=== PATIENT | female | born 2000 | race Caucasian/White ===

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

== ENCOUNTER → 2020-01-17 | Outpatient (CLI) | payer BC | END | disposition home or self-care (01) | LOC: LABWHC1 13:08 | DX: Z20.828 Contact with and (suspected) exposure to other viral communicable diseases (principal) | CPT/HCPCS: U0003; C9803 ==

== ENCOUNTER 2023-05-06 20:25 | Inpatient (IN) | payer BC ==
[2023-05-06] MEDS ORDERED: miSOPROStoL 200 MCG TAB PO PRN (21:07)
[2023-05-06] MEDS ORDERED: OXYTOCIN 10 UNIT/ML 1 ML VIAL IM PRN (21:07)
[2023-05-06] MEDS ORDERED: CARBOPROST TROMETHAMINE 250 MCG/ML 1 ML AMP IM PRN (21:07)
[2023-05-06] MEDS ORDERED: TRANEXAMIC 1,000 MG/100ML-NACL 1,000 MG in EMPTY BAG 1 BAG IV PRN (21:07)
[2023-05-06] MEDS ORDERED: METHYLERGONOVINE 0.2 MG/ML 1 ML AMP IM PRN (21:07)
[2023-05-06] MEDS: LACTATED RINGERS 1,000 ML IV SCH (21:15)
[2023-05-06] MEDS ORDERED: SUCCINYLCHOLINE CHLORIDE 200 MG/10 ML VIAL IV ONE (21:18)
[2023-05-06] MEDS ORDERED: OXYTOCIN 30 UNITS/500 ML NS BAG IV ONE (21:18)
[2023-05-06] MEDS ORDERED: fentaNYL (PF) 50 MCG/ML 2 ML AMP ONE (21:18)
[2023-05-06] MEDS ORDERED: ONDANSETRON 4 MG/2 ML VIAL ONE (21:18)
[2023-05-06] MEDS ORDERED: PROPOFOL 10 MG/ML 20 ML VIAL IV ONE (21:18)
[2023-05-06] MEDS ORDERED: KETOROLAC 15 MG/ML 1 ML VIAL ONE (21:18)
[2023-05-06] MEDS: CITRIC ACID-SODIUM CITRATE 15 ML CUP PO ONE (21:27)
[2023-05-06 21:30] LABS: Basophils % (A) 0 %; Eosinophils # (A) 0.1 k/uL (0-0.7); Eosinophils % (A) 1 %; HCT 35.4 % (34.0-46.0); HGB 12.1 gm/dL (11.4-16.0); Lymphocytes # (A) 1.8 k/uL (1.0-4.8); Lymphocytes % (A) 21 %; MCHC 34.1 g/dL (31.0-37.0); MCV 90.8 fL (80.0-100.0); Mean Platelet Volume 11.4; Monocytes # (A) 0.4 k/uL (0-1.0); Monocytes % (A) 5 %; Neutrophils # (A) 6.1 k/uL (1.3-7.7); Neutrophils % (A) 71 %; Platelet Count 161 k/uL (150-450); RBC 3.89 m/uL (3.80-5.40); RDW 14.1 % (11.5-15.5); WBC 8.5 k/uL (3.8-10.6)
[2023-05-06 21:33] LABS: ALT 18 U/L (4-34); AST 27 U/L (14-36); African American GFR (CKD) >90 (>60 ml/min/1.73 sqM); Blood Urea Nitrogen 12 mg/dL (7-17); Glucose 82 mg/dL (74-99); LDH 227 U/L (120-246); Magnesium 1.7 mg/dL (1.6-2.3); Non-African American GFR(CKD) >90 (>60 ml/min/1.73 sqM); Uric Acid 5.4 mg/dL (3.7-7.4)
[2023-05-06 21:50] LABS: INR 0.8 (<1.2); Partial Thromboplastin Time 23.8 sec (22.0-30.0); Prothrombin Time 9.6 sec (10.0-12.5)
[2023-05-06 22:00] LABS: Appearance,Urine Clear (Clear); Bacteria,Urine Rare /hpf; Bilirubin,Urine Negative (Negative); Blood,Urine Trace (Negative); Color,Urine Light Yellow; Glucose,Urine (UA) Negative (Negative); Hyaline Casts,Urine 1 /lpf (0-2); Ketones,Urine Negative (Negative); Leukocyte Esterase,Urine Negative (Negative); Mucus,Urine Moderate /hpf; Nitrite,Urine Negative (Negative); Protein,Urine 1+ (Negative); RBC,Urine 2 /hpf (0-5); Specific Gravity,Urine 1.029 (1.001-1.035); Squamous Epithelial Cell,Urine 9 /hpf (0-4); Urobilinogen,Urine <2.0 mg/dL (<2.0); WBC,Urine 1 /hpf (0-5)
[2023-05-06 22:01] LABS: Amphetamine Screen,Urine Not Detected (NotDetected); Barbiturate Screen,Urine Not Detected (NotDetected); Benzodiazepines Screen,Urine Not Detected (NotDetected); Cocaine Screen,Urine Not Detected (NotDetected); Methadone Screen, Urine Not Detected (NotDetected); Opiate Screen,Urine Not Detected (NotDetected); Oxycodone Screen, Urine Not Detected (NotDetected); Phencyclidine Screen,Urine Not Detected (NotDetected); Tricyclic Antidepressant,Urine Not Detected (NotDetected); Urn Cannabinoid Scrn Not Detected (NotDetected)
[2023-05-06] MEDS ORDERED: diphenhydrAMINE 50 MG/ML 1 ML VIAL IVP PRN ×2 (22:06)
[2023-05-06] MEDS ORDERED: diphenhydrAMINE 25 MG CAP PO PRN (22:06)
[2023-05-06] MEDS ORDERED: HYDROmorphone 0.5 MG/0.5 ML SYRINGE IVP PRN (22:06)
[2023-05-06] MEDS ORDERED: LANOLIN CREAM 1 GM TUBE TOPICAL PRN (22:06)
[2023-05-06] MEDS ORDERED: NALOXONE 0.4 MG/ML 1 ML VIAL IV PRN (22:06)
[2023-05-06] MEDS ORDERED: ZOLPIDEM 5 MG TAB PO PRN (22:06)
[2023-05-06] MEDS ORDERED: METOCLOPRAMIDE 5 MG/ML 2 ML VIAL IVP PRN (22:06)
[2023-05-06] MEDS ORDERED: ONDANSETRON 4 MG/2 ML VIAL IVP PRN (22:06)
[2023-05-06] MEDS ORDERED: HYDROmorphone 1 MG/ML 1 ML SYRINGE IVP PRN (22:06)
[2023-05-06] MEDS ORDERED: diphenhydrAMINE 50 MG CAP PO PRN (22:06)
[2023-05-06] MEDS ORDERED: SIMETHICONE 80 MG CHEWABLE PO PRN (22:06)
[2023-05-06] MEDS: OXYTOCIN 30 UNITS/500 ML NS 30 UNIT in SALINE 1 500ML.BAG IV SCH (22:14)
--- NOTE | 2023-05-06 22:19 | P.HPOB ---
History of Present Illness H&P Date: 05/06/23 Chief Complaint: Vaginal bleeding This is a 23-year-old female 1 para 0 with an estimated date of confinement of 05/29/2023, estimated gestational age of 36-5/7 weeks, who presented with sudden onset of vaginal bleeding at approximately 8 PM tonight. Patient states she was walking into her mother's house and felt some lower abdominal cramping and then thought her water broke. When she looked down it was all blood. She came immediately to the hospital. She states her belly has felt hard ever since. Patient states she has been getting regular care and [facility] and was scheduled to deliver at [facility]. Records are not available at this time. She did state that she has had no complications during the and no concerns on ultrasounds. Review of Systems Constitutional: Denies chills, Denies fever Eyes: denies blurred vision, denies pain Ears, nose, mouth and throat: Denies headache, Denies sore throat Cardiovascular: Denies chest pain, Denies shortness of breath Respiratory: Denies cough Gastrointestinal: Reports abdominal pain Genitourinary: Reports pelvic pain, Reports Musculoskeletal: Reports low back pain Integumentary: Denies pruritus, Denies rash Neurological: Denies numbness, Denies weakness Psychiatric: Denies anxiety, Denies depression Past Medical History Past Medical History: No Reported History History of Any Multi-Drug Resistant Organisms: None Reported Past Surgical History: No Surgical Hx Reported Past Psychological History: No Psychological Hx Reported Smoking Status: Never smoker Past Alcohol Use History: None Reported Past Drug Use History: None Reported - Past Family History Mother Family Medical History: No Reported History Medications and Allergies Home Medications Medication Instructions Recorded Confirmed Type Vit No.179/Iron/Folic 1 each PO DAILY 05/06/23 05/06/23 History [ Tablet] Allergies Allergy/AdvReac Type Severity Reaction Status Date / Time No Known Allergies Allergy Verified 08/19/13 23:40 Exam Osteopathic Statement: *. No significant issues noted on an osteopathic str uctural exam other than those noted in the History and Physical/Consult. Intake and Output 05/06/23 05/06/23 05/06/23 06:59 14:59 22:59 Other: Weight 101.605 kg Gen.: Well-developed well-nourished female in mild distress due to pain HEENT: Within normal limits Heart: Regular rate and rhythm Lungs: Clear to auscultation bilaterally Abdomen: Firm, moderately tender heart tones: 140s with minimal to moderate variability, nonreactive, no visible decelerations Contractions: Every minute Extremities: Negative Homans Cervix: 1 cm/60%/-2 station with a large amount of bright red blood and clots noted in the vault. Results Result Diagrams: 05/06/23 20:40 Abnormal Lab Results - Last 24 Hours (Table) 05/06/23 05/06/23 05/06/23 Range/Units 20:40 20:40 20:50 PT 9.6 L (10.0-12.5) sec Creatinine 0.51 L (0.52-1.04) mg/dL Urine Protein 1+ H (Negative) Urine Blood Trace H (Negative) Ur Squamous Epith Cells 9 H (0-4) /hpf Urine Bacteria Rare H (None) /hpf Urine Mucus Moderate H (None) /hpf Assessment and Plan (1) 36 weeks gestation of Current Visit: Yes Status: Acute Code(s): Z3A.36 - 36 WEEKS GESTATION OF SNOMED Code(s): 07111479 (2) Placental abruption in third trimester Current Visit: Yes Status: Acute Code(s): O45.93 - PREMATURE SEPARATION OF PLACENTA, UNSP, THIRD TRIMESTER SNOMED Code(s): 555223669 Plan: Admission for stat section due to active placental abruption. Obtained type and screen and CBC along with labs, coags, and urine drug screen due to no care at our institution. Patient and her were counseled regarding the need for emergent section under general anesthesia. All patient questions were answered. She has consented to procedure. I have discussed the risks, benefits, and alternative therapies for the above- mentioned procedure and for both sedation/anesthesia as well as necessary blood products administration, if indicated, as they pertain to this patient. The patient has indicated her understanding and acceptance of the risks and procedures discussed.
--- NOTE | 2023-05-06 22:36 | P.OP ---
Date of Procedure: 05/06/23 Preoperative Diagnosis: 1. Intrauterine at 36-5/7 weeks. 2. Active bleeding consistent with placenta abruption. 3. Rh- Postoperative Diagnosis: Same Procedure(s) Performed: Emergency Primary low transverse section Anesthesia: VEENA Surgeon: Suzette Vanegas Web Machine Tender #1: Agatha Mendoza Estimated Blood Loss (ml): 600 Pathology: other (Placenta) Condition: stable Disposition: floor Indications for Procedure: This is a 23-year-old female 1 para 0 at 36-5/7 weeks who presented with active vaginal bleeding that began approximately half an hour prior to admission. She also complained of constant tightening in her abdomen. Baby was noted to have heart tones in the 140s with minimal to moderate variability and no accelerations noted. In addition she was having contractions every minute. Cervix was noted to be 1 cm and she was having bright red bleeding and clots actively coming from the vagina. Patient was diagnosed with placental abruption and the need for emergent section was stressed to the patien t. After a patient centered huddle, the decision was made to proceed with emergency delivery. I have discussed the risks, benefits, and alternative therapies for the above- mentioned procedure and for both sedation/anesthesia as well as necessary blood products administration, if indicated, as they pertain to this patient. The patient has indicated her understanding and acceptance of the risks and procedures discussed. Operative Findings: A viable female infant was noted in the vertex presentation with scores of 4 at 1 minute and 8 at 5 minutes and nuchal cord 1 with an infant weight of 5 lbs. 12 oz. A large clot was noted next the placenta at approximately 25% of the placenta did appear to be darker in color consistent with placental abruption. Normal uterus tubes and ovaries are noted. Description of Procedure: The patient was taken to the operating room where she is placed in the dorsal supine position with a leftward tilt. She is prepped and draped in the normal sterile fashion. Portillo catheter had already been inserted. Gen. anesthesia was then given. A Pfannenstiel skin incision was made with a scalpel. A second knife was used to carry the incision down to the underlying layer of fascia. Fascia was nicked in the midline and extended laterally bilaterally with Madden scissors. The superior aspect of the fascial incision was grasped with Mae clamps and then elevated off the underlying rectus muscle in the midline with Madden scissors. The inferior aspect of the fascial incision was grasped with Mae clamps, elevated off the underlying rectus muscle with Madden scissors. Next the peritoneum was identified and tented up with 2 hemostats and then entered sharply with a scalpel. It was then extended superiorly and inferiorly with Metzenbaum scissors. Next the bladder blade was inserted and the vesicouterine peritoneum was entered sharply with Metzenbaum scissors and extended laterally bilaterally with 2 fingers. The bladder was then pushed inferiorly and the lower uterine segment was incised in a transverse fashion with the scalpel. The incision was extended laterally with 2 fingers. The amniotic fluid was then artificial ruptured with a hemostat and clear blood- tinged fluid was noted. was then delivered through the incision and nose and mouth were bulb suctioned. Nuchal cord 1 was reduced and then cord was clamped and cut and was taken to warmer for evaluation. Cord blood was obtained. Next the placenta was delivered. A large approximately 10 x 10 cm clot was noted to be next to the placenta and approximately 25% of the placenta did have a darker appearance to it. Next the uterus was exteriorized and cleared of all clots and debris. Uterine incision was then closed with 0 Vicryl suture in a running locked fashion. A second layer of 0 Vicryl suture in a running fashion was used for hemostasis. The vesicouterine peritoneum was sutured with 2-0 Vicryl suture in a running fashion. Next the posterior cul-de-sac was suctioned of all clots and debris. The uterus was returned to the abdomen. The peritoneal incision was then closed with 0 Vicryl suture in a running fashion. The muscle layer was then reapproximated with 0 Vicryl suture in interrupted fashion. The fascial layer was then closed with 0 PDS suture with 2 sutures meeting in the midline and the knots buried on either side and in the midline. Next the subcutaneous tissue was closed with 2-0 Vicryl suture in a running fashion. The skin was closed with maryjane.
[2023-05-06] MEDS: HYDROmorphone PCA 10 MG/50 ML BAG IV PRN (23:03)
[2023-05-06 23:17] LABS: Creatinine,Urine Random 144.2 mg/dL; Protein/Creatinine Ratio,Urine 0.354
[2023-05-07 00:11] LABS: Large Platelets Present
[2023-05-07] MEDS: LACTATED RINGERS 1,000 ML IV SCH (01:00)
[2023-05-07] MEDS: ACETAMINOPHEN TAB 500 MG TAB PO SCH (01:03)
[2023-05-07] MEDS: Rhogam IMMUNE GLOBULIN 1,500 UNIT/1 ML IM ONE (02:22)
[2023-05-07] MEDS: KETOROLAC 15 MG/ML 1 ML VIAL IVP SCH (04:14)
[2023-05-07] MEDS: IBUPROFEN 600 MG TAB PO SCH (04:15)
[2023-05-07 05:08] LABS: Basophils % (A) 0 %; Eosinophils % (A) 0 %; HCT 27.4 % (34.0-46.0); Lymphocytes # (A) 1.6 k/uL (1.0-4.8); Lymphocytes % (A) 14 %; MCH 30.8 pg (25.0-35.0); MCHC 33.6 g/dL (31.0-37.0); MCV 91.7 fL (80.0-100.0); Monocytes # (A) 0.4 k/uL (0-1.0); Monocytes % (A) 3 %; Neutrophils # (A) 9.1 k/uL (1.3-7.7); Neutrophils % (A) 82 %; Platelet Count 130 k/uL (150-450); RBC 2.99 m/uL (3.80-5.40); RDW 14.2 % (11.5-15.5); WBC 11.2 k/uL (3.8-10.6)
[2023-05-07 05:55] LABS: HGB 9.2 gm/dL (11.4-16.0)
[2023-05-07] MEDS: ACETAMINOPHEN IV (For NPO) 1,000 MG in EMPTY BAG 1 BAG IVPB SCH (07:41)
--- NOTE | 2023-05-07 10:59 | P.MSEPDOC ---
Presenting Problems - Arrival Data Date of Arrival on Unit: 05/06/23 Time of Arrival on Unit: 20:25 Mode of Transport: Wheelchair - Complaint OB-Reason for Admission/Chief Complaint: Vaginal Bleeding Comment: pt. states she started bleeding 30min ago, pt. wore a pad in- pad is saturated and bleeding running down pt. leg bright red blood Medical History - Information : 1 Para: 0 Term: 0 : 0 Abortions: Spontaneous or Elective: 0 Number of Living Children: 0 - Gestational Age Gestational Age by MICHELLE (wks/days): 36 Weeks and 5 Days - History Comment: pt. is a DOM has had care with Dr. [place] Review of Systems - Review of Systems Constitutional: No problems Breast: No problems ENT: No problems Cardiovascular: No problems Respiratory: No problems Gastrointestinal: No problems Genitourinary: No problems Musculoskeletal: No problems Neurological: No problems Skin: No problems Vital Signs - Temperature Temperature: 98.2 F Temperature Source: Oral - Pulse Pulse Oximetery Pulse Rate: 99 Pulse Assessment Method: Automatic Cuff - Respirations Respiratory Rate: 16 Oxygen Delivery Method: Room Air O2 Sat by Pulse Oximetry: 98 - Blood Pressure Right Arm Blood Pressure: 112/68 Blood Pressure Mean: 82 Blood Pressure Source: Automatic Cuff Medical Screen Scoring - Cervical Exam Dilation (cm): 1 Effacement (%): 60 - Uterine Contractions Frequency From (mins): 1 Frequency To (mins): 2 Duration From (seconds): 60 Duration To (seconds): 70 Intensity: Strong Resting: Rigid to palpation - Assessment - Baby A Baseline FHR: 140 Heart Rate - NICHD Category: Category II (Indeterminate) NST: Non-reactive Physician Notification - Physician Notified Physician Notified Date: 05/06/23 Physician Notified Time: 20:33 Physician: Dr. cedeño New Order Received: Yes - Notification Comment Comment: start IV, labs, PIH, UDS, will be coming into unit, FOOD AND DRUG INSPECTOR notified, Dr. Mendoza notified, insert dominguez, prep for Maternal Triage Index - Maternal Triage Index Presenting for scheduled procedure w/no complaint: Yes - Stat/Priority 1 Provider Notified: Suzette Cdeeño Provider Notified Time: 20:33 Criteria Met for Priority 1: pt. activity bleeding- bright red blood, ABD rigid to palpation pt. stating -10/27 pain constant to ABD - Scheduled/Requesting Priority 5 Scheduled/Requesting Priority 5: No Disposition - Disposition OB Disposition: Admit I agree with the RN Medical Screening Exam: Yes Case reviewed; plan agreed upon as documented in EMR&OBIX.: Yes Diagnosis: ABNORMAL UTERINE AND VAGINAL BLEEDING, UNSPECIFIED Additional Diagnoses: Probable placental abruption
--- NOTE | 2023-05-07 11:22 | P.PNOBGPC ---
Subjective - Subjective Principal diagnosis: Status post primary section postoperative day #1 Interval history: Patient is doing well. She has been ambulating. She is passing flatus but no bowel movement yet. Her catheter has been out for about 5 hours now and she is still been unable to urinate. If she is unable to urinate in the next hour, she will have a straight cath. Bleeding has been minimal. She denies any headaches or blurry vision. Pain is fairly well controlled at this time. Patient reports: Reports appetite normal, Reports pain well controlled, Reports ambulating normally, Denies voiding normally [place]: doing well, nursing well Objective - Vital Signs Latest vital signs: Vital Signs Temp Pulse Resp BP Pulse Ox 05/07/23 10:59 98.2 F 99 16 112/68 98 05/07/23 04:00 98.2 F 99 16 112/68 98 05/07/23 02:19 98.7 F 16 100 05/07/23 00:15 98.9 F 86 16 127/81 100 05/07/23 00:00 72 16 130/81 100 05/06/23 23:45 72 16 128/81 100 05/06/23 23:30 77 16 130/79 100 05/06/23 23:15 72 16 130/84 100 05/06/23 23:00 73 16 136/83 100 05/06/23 22:45 97.9 F 80 16 129/80 100 05/06/23 22:41 97.7 F 78 16 124/68 100 05/06/23 22:30 95 16 138/73 100 05/06/23 22:15 81 16 119/75 100 05/06/23 22:12 100 05/06/23 22:00 97.0 F L 102 H 15 111/63 97 05/06/23 20:26 97.0 F L 86 16 143/99 98 Intake and Output 05/06/23 05/07/23 05/07/23 22:59 06:59 14:59 Intake Total 1200 240 Output Total 586 315 Balance 614 -315 240 Intake: IV 1200 Oral 240 Output: Urine 50 300 Uretheral (Portillo) 200 Output, Quantitative 536 15 Blood Loss Other: Voiding Method Indwelling Catheter Weight 101.605 kg - Exam Extremities: Present: normal. Absent: tenderness, edema Abdomen: Present: normal appearance, soft. Absent: distention, tenderness Incision: Present: normal, dry, intact. Absent: erythematous Uterus: Present: normal, firm. Absent: tenderness - Labs Labs: Abnormal Lab Results - Last 24 Hours (Table) 05/06/23 05/06/23 05/06/23 Range/Units 20:40 20:40 20:50 WBC (3.8-10.6) k/uL RBC (3.80-5.40) m/uL Hgb (11.4-16.0) gm/dL Hct (34.0-46.0) % Plt Count (150-450) k/uL Neutrophils # (1.3-7.7) k/uL PT 9.6 L (10.0-12.5) sec Creatinine 0.51 L (0.52-1.04) mg/dL Urine Protein 1+ H (Negative) Urine Blood Trace H (Negative) Ur Squamous Epith Cells 9 H (0-4) /hpf Urine Bacteria Rare H (None) /hpf Urine Mucus Moderate H (None) /hpf 05/07/23 Range/Units 04:48 WBC 11.2 H (3.8-10.6) k/uL RBC 2.99 L (3.80-5.40) m/uL Hgb 9.2 L D (11.4-16.0) gm/dL Hct 27.4 L (34.0-46.0) % Plt Count 130 L (150-450) k/uL Neutrophils # 9.1 H (1.3-7.7) k/uL PT (10.0-12.5) sec Creatinine (0.52-1.04) mg/dL Urine Protein (Negative) Urine Blood (Negative) Ur Squamous Epith Cells (0-4) /hpf Urine Bacteria (None) /hpf Urine Mucus (None) /hpf Assessment and Plan Assessment: Status post primary low transverse section for placental abruption postoperative day #1 (1) 36 weeks gestation of Current Visit: Yes Status: Acute Code(s): Z3A.36 - 36 WEEKS GESTATION OF SNOMED Code(s): 00587270 (2) Placental abruption in third trimester Current Visit: Yes Status: Acute Code(s): O45.93 - PREMATURE SEPARATION OF PLACENTA, UNSP, THIRD TRIMESTER SNOMED Code(s): 172755142 Plan: Continue with postoperative and care today. Will advance diet as tolerated. We'll try to obtain labs from patient portal or from her physician's office tomorrow morning. We did find out that her GBS was negative.
[2023-05-07] MEDS: SENNOSIDES-DOCUSATE SODIUM 1 EACH TAB PO SCH (12:06)
[2023-05-07 13:56] LABS: Hepatitis B Surface Antigen Nonreactive
--- NOTE | 2023-05-08 08:30 | P.PNOBGPC ---
Subjective - Subjective Principal diagnosis: Status post primary section postoperative day #2 Interval history: Patient is doing okay but is more sore today. She is passing flatus and bowel movement. She is breast-feeding. Lochia is very minimal. Patient reports: Reports appetite normal, Reports voiding normally, Reports pain poorly controlled, Reports ambulating normally [place]: doing well, nursing well Objective - Vital Signs Latest vital signs: Vital Signs Temp Pulse Resp BP Pulse Ox 05/08/23 00:00 97.6 F 91 16 107/69 96 05/07/23 22:12 98 05/07/23 19:42 97.6 F 92 16 122/78 96 05/07/23 11:51 98.2 F 80 16 118/64 99 05/07/23 10:59 98.2 F 99 16 112/68 98 Intake and Output 05/07/23 05/08/23 05/08/23 22:59 06:59 14:59 Output Total 800 Balance -800 Output: Urine 800 Other: # Voids 350 3 1 - Exam Extremities: Present: normal. Absent: tenderness, edema Abdomen: Present: normal appearance, soft (Positive bowel sounds 4). Absent: distention, tenderness Incision: Present: normal, dry, intact. Absent: erythematous Uterus: Present: normal, firm. Absent: tenderness - Labs Labs: Abnormal Lab Results - Last 24 Hours (Table) 05/06/23 Range/Units 20:40 Rubella IgG Antibody 354.00 H (0.00-9.00) IU/mL Assessment and Plan Assessment: Status post primary low transverse section for abruption postoperative day #2 (1) 36 weeks gestation of Current Visit: Yes Status: Acute Code(s): Z3A.36 - 36 WEEKS GESTATION OF SNOMED Code(s): 70210019 (2) Placental abruption in third trimester Current Visit: Yes Status: Acute Code(s): O45.93 - PREMATURE SEPARATION OF PLACENTA, UNSP, THIRD TRIMESTER SNOMED Code(s): 456531981 Plan: We'll continue with postoperative and care today. Patient is encouraged to continue taking her pain medications on a schedule. She does not like the oxycodone and therefore does not want to take it.
[2023-05-08 13:36] LABS: HIV 2 AB Non-Reactive (Non-Reactive); HIV AB P24 Non-Reactive (Non-Reactive); HIV P24 AG Non-Reactive (Non-Reactive)
[2023-05-08 15:50] LABS: N. gonorrhoeae,PCR Negative (Negative)
[2023-05-08 15:57] LABS: C. trachomatis,PCR Negative (Negative)
[2023-05-09 02:00] VITALS: BP 119/70
[2023-05-09 08:34] VITALS: PULSE 120; RESP 40; TEMP 97.7
--- NOTE | 2023-05-09 08:39 | P.DS ---
Providers Date of admission: 05/06/23 21:00 Expected date of discharge: 05/09/23 Attending physician: Suzette Vanegas Primary care physician: Stated None - Discharge Diagnosis(es) (1) 36 weeks gestation of Current Visit: Yes Status: Acute (2) Placental abruption in third trimester Current Visit: Yes Status: Acute Hospital Course: This is a 23-year-old female 1 para 0 at 36-5/7 weeks who presented with vaginal bleeding and was diagnosed with placental abruption. She underwent an emergent primary section under general anesthesia and delivered a viable female infant with scores of 4 at 1 minute and 8 at 5 minutes and weight of 5 lbs. 12 oz. Large placental abruption was noted at the time of delivery. Her postoperative course has been essentially uncomplicated. She is passing flatus and bowel movement now. Her pain is better controlled. She is working on breast-feeding. Lochia has been minimal. Vital signs are stable. Abdomen is soft with fundus firm and nontender. Incision is clean dry and intact. Extremities show negative Homans. Pressure is status post primary low transverse section postoperative day #3. Plan is to discharge home today. Routine postoperative and instructions are given. She does have an appointment with her own deck steward in about a week for a postoperative check. She is advised to call if she has any further questions or concerns prior to her appointment time. She has been given a prescription for ibuprofen. [place] will be removed and Steri-Strips placed prior to discharge. Procedures: Primary low transverse section on 05/06/2023 Patient Condition at Discharge: Stable Plan - Discharge Summary New Discharge Prescriptions: New Ibuprofen [Motrin] 600 mg PO Q6H #60 tab No Action Vit No.179/Iron/Folic [ Tablet] 1 each PO DAILY Discharge Medication List Vit No.179/Iron/Folic [ Tablet] 1 each PO DAILY 05/06/23 [History] Ibuprofen [Motrin] 600 mg PO Q6H #60 tab 05/08/23 [Rx] Follow up Appointment(s)/Referral(s): Suzette Vanegas DO [Doctor of Osteopathic Medicine] - 1 Week (She will follow up with her physician Dr. Hsu on discharge.) Activity/Diet/Wound Care/Special Instructions: Instructions 1. Do not begin any exercise program for 3 weeks. 2. Do not resume sexual relations for 3 weeks or longer if uncomfortable. 3. You may take tub baths or showers at any time. 4. You may use tampons if desired after 3 weeks. 5. Keep the area of episiotomy (stitches) clean and dry. 6. If you are not nursing, wear a good fitting, supportive bra during the day and limit fluid intake for at least 1 week to prevent breast engorgement. 7. Call the office, [phone], within the next week to make appointment for your 6 week checkup if it has not already been made. 8. Report any of the following occurrences to the doctor promptly: a. Heavy, excessive bleeding b. Chills, fever c. Burning or frequency of urination d. Pain or redness and breasts if nursing e. Increasing pain or swelling in episiotomy (stitches). In addition to the above instructions, the following additional should be followed: 1. No heavy lifting or straining (exercising) until after 6 week checkup. 2. Keep abdominal incision clean and dry: You may wear a dressing if more comfortable. 3. Make office appointment for 10 days after going home or as instructed by her doctor. Discharge Disposition: HOME SELF-CARE
== END 2023-05-09 15:30 | disposition home or self-care (01) | DRG 786 ==
LOC: FBPOP 20:25 → 4FBP 21:00
PROVIDERS: ADMIT Obstetrics & Gynecology; ATTEND Obstetrics & Gynecology
PROC: 10D00Z1 Extraction of Products of Conception, Low, Open Approach (ICD-10-PCS; principal; 2023-05-06 21:18)
DX: O69.81X0 Labor and delivery complicated by cord around neck, without compression, not applicable or unspecified (principal); O45.93 Premature separation of placenta, unspecified, third trimester; O26.899 Other specified pregnancy related conditions, unspecified trimester; Z3A.36 36 weeks gestation of pregnancy; Z37.0 Single live birth; Z28.310 Unvaccinated for COVID-19
CPT/HCPCS: 36415; 80306; 81001; 82565; 82570; 82947; 83615; 83735; 84156; 84450; 84460; 84520; 84550; 85025; 85384; 85461; 85610; 85730; 86762; 86780; 86850; 86870; 86880; 86900; 86901; 87340; 87390; 87491; 87591; 88307; 96360; 99215

== ENCOUNTER 2024-10-09 16:51 | Emergency (ER) | payer BC, OTHER ==
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
[2024-10-09 17:01] VITALS: RESP 22; TEMP 98.4
[2024-10-09 17:26] LABS: ALT 11 U/L (4-34); AST 29 U/L (14-36); African American GFR (CKD) >90 (>60 ml/min/1.73 sqM); Albumin 3.8 g/dL (3.5-5.0); Alkaline Phosphatase 78 U/L (38-126); Amylase 47 U/L (30-110); Anion Gap 10 mmol/L; Blood Urea Nitrogen 8 mg/dL (7-17); Calcium 8.9 mg/dL (8.4-10.2); Carbon Dioxide 15 mmol/L (22-30); Chloride 108 mmol/L (98-107); Glucose 115 mg/dL (74-99); Lipase 49 U/L (23-300); Non-African American GFR(CKD) >90 (>60 ml/min/1.73 sqM); Potassium 4.1 mmol/L (3.5-5.1); Sodium 133 mmol/L (137-145); Total Protein 6.5 g/dL (6.3-8.2)
[2024-10-09] MEDS: ACETAMINOPHEN IV (For NPO) 1,000 MG in EMPTY BAG 1 BAG IVPB STA (17:38)
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
[2024-10-09] MEDS: SODIUM CHLORIDE 0.9% 1,000 ML IV ONE (17:39)
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
[2024-10-09 18:34] LABS: Basophils # (A) 0.02 10*3/uL (0.00-0.10); Basophils % (A) 0.2 %; Eosinophils # (A) 0.03 10*3/uL (0.04-0.35); Eosinophils % (A) 0.3 %; HCT 35.0 % (37.2-46.3); HGB 12.4 g/dL (12.0-15.0); Lymphocytes # (A) 1.10 10*3/uL (0.90-5.00); Lymphocytes % (A) 11.9 %; MCH 31.6 pg (27.0-32.0); MCHC 35.4 g/dL (32.0-37.0); MCV 89.1 fL (80.0-97.0); Monocytes # (A) 0.43 10*3/uL (0.20-1.00); Monocytes % (A) 4.6 %; Neutrophils # (A) 7.62 10*3/uL (1.80-7.70); Neutrophils % (A) 82.4 %; Platelet Count 181 10*3/uL (140-440); RBC 3.93 10*6/uL (4.10-5.20); RDW 12.9 % (11.5-14.5); WBC 9.26 10*3/uL (4.50-10.00)
[2024-10-09 18:52] VITALS: BP 115/75; PULSE 96
== END 2024-10-09 18:49 | disposition home or self-care (01) ==
LOC: EC 16:51
DX: O26.893 Other specified pregnancy related conditions, third trimester (principal); R07.9 Chest pain, unspecified; V43.52XA Car driver injured in collision with other type car in traffic accident, initial encounter; Y92.410 Unspecified street and highway as the place of occurrence of the external cause; Z3A.29 29 weeks gestation of pregnancy
CPT/HCPCS: 36415; 80053; 82150; 83605; 83690; 84484; 85025; 72170; 71045; 76815; 99285; 96365; 96361; J0131

== ENCOUNTER 2024-10-09 19:12 | Outpatient (CLI) | payer BC ==
[2024-10-09] MEDS: LACTATED RINGERS 1,000 ML IV ONE (21:20)
[2024-10-09] MEDS: ACETAMINOPHEN IV (For NPO) 1,000 MG in EMPTY BAG 1 BAG IVPB ONE (23:46)
[2024-10-09] MEDS: TERBUTALINE 1 MG/ML VIAL SQ STA (23:50)
[2024-10-10 03:00] VITALS: BP 109/67; PULSE 102; RESP 18; TEMP 98.9
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
== END 2024-10-10 00:35 | disposition home or self-care (01) ==
LOC: FBPOP 19:12
PROVIDERS: ATTEND Obstetrics & Gynecology
DX: O26.893 Other specified pregnancy related conditions, third trimester (principal); Z3A.29 29 weeks gestation of pregnancy
CPT/HCPCS: 59025; 99215; 96361; 96365; 96372; 36415; J3105; J0131